=== PATIENT | female | born 1980 | race Caucasian/White ===

== ENCOUNTER → 2019-12-30 16:11 | Outpatient (CLI) | payer OTHER, SELFPAY ==
--- NOTE | ~2019-12-30 | US_ITS ---
EXAMINATION: US thyroid EXAM DATE: 12/30/2019 16:27 INDICATION: Thyroid nodule. TECHNIQUE: Multiple grayscale and Doppler images of the thyroid were obtained (by a technologist who performed the scan) and subsequently reviewed. Individual nodules may be reported using TI-RADS syst em as designated by the 2017 ACR White Paper TI-RADS committee. There is no prior study for comparis on. FINDINGS: Right thyroid lobe measures 5.3 x 1.6 x 1.4 cm, the left measuring 3.8 x 1.0 x 1.4 cm. No focal thyro id nodule identified. Homogeneous thyroid echogenicity. IMPRESSION: 1. Unremarkable thyroid ultrasound exam. Reviewed, dictated and finalized at location B. NG CONSULTANT
== END ==
PROVIDERS: Visit Provider Nurse Practitioner
DX: E04.1 Nontoxic single thyroid nodule (principal)
CPT/HCPCS: 76536

== ENCOUNTER 2022-04-19 08:07 | Emergency (ER) | payer OTHER, SELFPAY ==
[2022-04-19 08:37] VITALS: BP 133/102; PULSE 90; RESP 18; TEMP 37; O2SAT 98
--- NOTE | 2022-04-19 08:58 | ED.GENADULT ---
HPI - General Adult General Chief complaint: Allergic Reaction Stated complaint: wound on breast Time Seen by Provider: 04/19/22 08:57 Source: patient Mode of arrival: ambulatory Limitations: no limitations History of Present Illness HPI narrative: Patient is a 41-year-old female who presents the ED with reported allergic reaction. Patient reports she was at an outdoor concert last night and began noticing itching across her chest and feet. She was wearing sandals. She reports also having swelling in her feet at that time, noting that her sandals did not fit properly. She applied ice packs last night, but reported having persistent itching and redness to her chest, right breast, left foot. This morning, she woke up and reported having swelling around her eyes. She denied any oral swelling, swelling of tongue, swelling of lips, difficulty breathing. She mentioned feeling like she needed to clear her throat frequently, but denied any throat swelling or itching. She also noticed a small blister to her R medial breast. She took Benadryl 25 mg orally this morning but reported having persistent itching which prompted her to come to the ED. Patient denies any fever, chills, nausea, vomiting, diarrhea, hives, CP. Related Data Allergies Allergy/AdvReac Type Severity Reaction Status Date / Time Penicillins Allergy Unknown Verified 04/19/22 08:43 Review of Systems Review of Systems: CONSTITUTIONAL: Denies fever, chills. ENT: Reports swelling around eyes. Denies rhinorrhea, congestion, sore throat, swelling of lips or tongue, swelling/itching in throat. CARDIOVASCULAR: Denies chest pain. RESPIRATORY: Denies cough or dyspnea. GASTROINTESTINAL: Denies abdominal pain, nausea, vomiting, or diarrhea. GENITOURINARY: Denies dysuria or hematuria. SKIN: Reports redness and itching to chest, right breast, left foot, blister to right medial breast. Denies rash/hives. MUSCULOSKELETAL: Denies back pain. NEUROLOGIC: Denies headache. All systems reviewed & are unremarkable except as noted in HPI and below PMFSH Past Medical History Medical History (Updated 04/19/22 @ 11:00 by Lisa Blackburn PA-C) No pertinent past medical history Surgical History Surgical History (Updated 04/19/22 @ 09:20 by Lisa Blackburn PA-C) No pertinent past surgical history Social History Social History (Updated 04/19/22 @ 09:20 by Lisa Blackburn PA-C) Smoking status: Never smoker Exam Narrative: GENERAL: Well appearing, well-nourished, non-toxic, in no acute distress. HEAD: Normocephalic, atraumatic. EYES: PERRL/EOMI, conjunctivae clear bilaterally. No swelling around the eyelids. NOSE: Normal, no drainage. THROAT: Pharynx clear, no exudate. MMs moist. No mucosal swelling, redness, swelling of lips or tongue. NECK: Supple. No adenopathy, no masses. No swelling. RESPIRATORY: Airway patent, respirations nonlabored. Clear to auscultation bilaterally, no rales, rhonchi, wheezing. CARDIOVASCULAR: Regular rate and rhythm without murmurs, rubs, or gallops. Radial pulses 2+ and equal bilaterally. ABDOMEN: Soft, nontender, nondistended, normoactive BS. MUSCULOSKELETAL: Moves all extremities. Strength/ROM intact without gross deformities. SKIN: Warm, dry. Small clear fluid filled blister to R medial breast, no surrounding erythema. Mild flushed appearance to face and chest. Mild erythema and warmth to L dorsal foot, no wounds or lesions. NEURO: A&O X3. Speech clear. Cranial nerves II-XII grossly intact. Steady gait. No ataxic movements. PSYCHIATRIC: Appropriate mood and affect. Normal interaction. Course Vital Signs Vital signs: Vital Signs Temperature 98.6 F 04/19/22 08:37 Pulse Rate 90 04/19/22 08:37 Respiratory Rate 18 04/19/22 08:37 Blood Pressure 133/102 H 04/19/22 08:37 Pulse Oximetry 98 04/19/22 08:37 Oxygen Delivery Room Air 04/19/22 08:37 Temperature 98.6 F 04/19/22 08:37 Pulse Rate 59 L 04/19/22 11:20 Respiratory Rate 14
[2022-04-19] MEDS: FAMOTIDINE 20 MG/2 ML VIAL IV PUSH (09:19)
[2022-04-19] MEDS: methylPREDNISolone SOD SUCC 125 MG VIAL IV PUSH (09:19)
[2022-04-19] MEDS: diphenhydrAMINE HCl INJ 50 MG/ML VIAL 25 MG IV PUSH (09:19)
[2022-04-19 11:20] VITALS: BP 108/71; PULSE 59; RESP 14; O2SAT 96
== END 2022-04-19 11:15 | disposition home or self-care (01) ==
PROVIDERS: Emergency Provider Emergency Medicine
DX: L23.9 Allergic contact dermatitis, unspecified cause (principal)
CPT/HCPCS: 96374; 96375; 99284; J1200; J2930

== ENCOUNTER 2022-04-21 21:05 | Emergency (ER) | payer OTHER, SELFPAY ==
[2022-04-21 21:07] VITALS: BP 119/74; PULSE 62; RESP 18; TEMP 36.4; O2SAT 100
--- NOTE | 2022-04-21 21:30 | ED.WOUNDLAC ---
HPI - Wound/Laceration General Chief Complaint: Wound/Laceration <Nitza Snyder PA-C - Last Filed: 04/21/22 21:35> Stated Complaint: bug bite to chest <Nitza Snyder PA-C - Last Filed: 04/21/22 21:35> Time Seen by Provider: 04/21/22 21:15 <Nitza Snyder PA-C - Last Filed: 04/21/22 21:35> Source: patient <Nitza Snyder PA-C - Last Filed: 04/21/22 21:35> Mode of arrival: ambulatory <Nitza Snyder PA-C - Last Filed: 04/21/22 21:35> Limitations: no limitations <Nitza Snyder PA-C - Last Filed: 04/21/22 21:35> History of Present Illness HPI narrative: This is a 41 year old female that presents to the ER for wound to the right breast. Reports she was bitten by a bug 2 days ago. She was evaluated here after this for an allergic reaction. Reports today the area has become more painful and red. She has also had some drainage from the area. Denies fevers. <Nitza Snyder PA-C - Last Filed: 04/21/22 21:35> Related Data Allergies/Adverse Reactions: Allergies Allergy/AdvReac Type Severity Reaction Status Date / Time Penicillins Allergy Unknown Verified 04/21/22 21:10 <Nitza Snyder PA-C - Last Filed: 04/21/22 21:35> Review of Systems Review of Systems: CONSTITUTIONAL: Denies fever <Nitza Snyder PA-C - Last Filed: 04/21/22 21:35> All systems reviewed & are unremarkable except as noted in HPI and below <Nitza Snyder PA-C - Last Filed: 04/21/22 21:35> [facility] Past Medical History Medical History: Medical History (Updated 04/21/22 @ 21:34 by Nitza Snyder PA-C) No pertinent past medical history <Nitza Snyder PA-C - Last Filed: 04/21/22 21:35> Surgical History Surgical History: Surgical History (Updated 04/19/22 @ 09:20 by Lisa Blackburn PA-C) No pertinent past surgical history <Nitza Snyder PA-C - Last Filed: 04/21/22 21:35> Social History Social History: Social History (Updated 04/19/22 @ 09:20 by Lisa Blackburn PA-C) Smoking status: Never smoker <Nitza Snyder PA-C - Last Filed: 04/21/22 21:35> Exam Narrative: GENERAL: Well-appearing, well-nourished, and in no acute distress. HEAD: Normocephalic, atraumatic. EYES: EOMI. EXTREMITIES: Normal range of motion. No edema. SKIN: Warm, dry, no rash. NEURO: No focal deficits. Alert and oriented x3. 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 I was available for evaluation and consultation, I agree with the documentation <Bryan Taylor MD - Last Filed: 04/21/22 21:58> Vital Signs Vital signs: Vital Signs Temperature 36.4 C 04/21/22 21:07 Pulse Rate 62 04/21/22 21:07 Respiratory Rate 18 04/21/22 21:07 Blood Pressure 119/74 04/21/22 21:07 Pulse Oximetry 100 04/21/22 21:07 Oxygen Delivery Room Air 04/21/22 21:07 Temperature 36.4 C 04/21/22 21:07 Pulse Rate 62 04/21/22 21:07 Respiratory Rate 18 04/21/22 21:07 Blood Pressure 119/74 04/21/22 21:07 Pulse Oximetry 100 04/21/22 21:07 Oxygen Delivery Room Air 04/21/22 21:07 <Nitza Snyder PA-C - Last Filed: 04/21/22 21:35> Vital Signs Temperature 36.4 C 04/21/22 21:07 Pulse Rate 62 04/21/22 21:07 Respiratory Rate 18 04/21/22 21:07 Blood Pressure 119/74 06/03/22 21:07 Pulse Oximetry 100 04/21/22 21:07 Oxygen Delivery Room Air 04/21/22 21:07 Temperature 36.4 C 04/21/22 21:07 Pulse Rate 62 04/21/22 21:07 Respiratory Rate 18 04/21/22 21:07 Blood Pressure 119/74 04/21/22 21:07 Pulse Oximetry 100 04/21/22 21:07 Oxygen Delivery Room Air 04/21/22 21:07 <Bryan Taylor MD - Last Filed: 04/21/22 21:58> MDM - Wound/Laceration MDM Narrative Medical d
[2022-04-21] MEDS: DOXYCYCLINE HYCLATE 100 MG TABLET PO (21:42)
== END 2022-04-21 21:54 | disposition home or self-care (01) ==
PROVIDERS: Emergency Provider Emergency Medicine
DX: L03.313 Cellulitis of chest wall (principal); W57.XXXA Bitten or stung by nonvenomous insect and other nonvenomous arthropods, initial encounter
CPT/HCPCS: 99283; A9270